=== PATIENT | male | born 1980 | race Caucasian/White ===

== ENCOUNTER 2019-06-16 13:46 | Emergency (ER) | payer OTHER ==
[~2019-06-16] VITALS: Ht 185.4 cm; Wt 115.9 kg
[2019-06-16 13:51] VITALS: BP 137/83; PULSE 79; TEMP 98.1
== END 2019-06-16 14:34 | disposition home or self-care (01) ==
LOC: COL.ER 13:46
DX: N52.9 Male erectile dysfunction, unspecified (principal); F41.9 Anxiety disorder, unspecified; F32.9 Major depressive disorder, single episode, unspecified; Z87.442 Personal history of urinary calculi; Z88.0 Allergy status to penicillin; Z88.8 Allergy status to other drugs, medicaments and biological substances

== ENCOUNTER 2020-02-01 14:48 | Emergency (ER) | payer OTHER ==
[~2020-02-01] VITALS: Ht 185.4 cm; Wt 113.6 kg
[2020-02-01 14:52] VITALS: TEMP 98.6
[2020-02-01 15:31] VITALS: BP 119/84; PULSE 84
== END 2020-02-01 15:35 | disposition home or self-care (01) ==
LOC: COL.ER 14:48
DX: T67.5XXA Heat exhaustion, unspecified, initial encounter (principal)

== ENCOUNTER 2020-12-30 16:44 | Emergency (ER) | payer OTHER ==
[~2020-12-30] VITALS: Ht 185.4 cm; Wt 118.2 kg
[2020-12-30 17:16] VITALS: BP 114/80; TEMP 98.7
[2020-12-30 20:32] VITALS: PULSE 72
== END 2020-12-30 20:33 | disposition home or self-care (01) ==
LOC: COL.ER 16:44
DX: S60.472A Other superficial bite of right middle finger, initial encounter (principal); T67.5XXA Heat exhaustion, unspecified, initial encounter; N52.9 Male erectile dysfunction, unspecified; W54.0XXA Bitten by dog, initial encounter

== ENCOUNTER 2021-07-31 11:51 | Emergency (ER) | payer OTHER ==
[~2021-07-31] VITALS: Ht 185.4 cm; Wt 120.5 kg
[2021-07-31 12:21] VITALS: BP 123/87; TEMP 98.4
[2021-07-31 13:35] VITALS: PULSE 72
== END 2021-07-31 13:39 | disposition home or self-care (01) ==
LOC: COL.ER 11:51
DX: U07.1 COVID-19 (principal)

== ENCOUNTER → 2021-07-31 | Emergency (ER) | payer OTHER | LOC: COL.ER 10:04 | DX: R69 Illness, unspecified (principal) ==

== ENCOUNTER 2021-08-18 11:17 | Emergency (ER) | payer OTHER ==
[~2021-08-18] VITALS: Ht 185.4 cm; Wt 120.5 kg
[2021-08-18 11:31] VITALS: TEMP 97.6
[2021-08-18 11:50] LABS: BASO % 0.7 % (0.0-2.0); EOS # 0.4 K/mm3 (0.0-0.7); EOS % 6.1 % (0.0-4.0); GRAN # 3.2 K/mm3 (1.4-6.5); GRAN % 56.2 % (42.2-75.2); HEMATOCRIT 42.4 % (42.0-52.0); HEMOGLOBIN 14.2 g/dl (13.5-18.0); LYMPH # 1.7 K/mm3 (1.2-3.4); LYMPH % 30.3 % (20.0-51.0); MEAN CELL VOLUME 92 fl (80.0-100.0); MEAN CORPUSCULAR HEMOGLOBIN 31 pg (27-31); MEAN CORPUSCULAR HGB CONC 34 g/dl (33.0-37.0); MEAN PLATELET VOLUME 9.5 fl (7.4-10.4); MONO # 0.4 K/mm3 (0.1-0.6); MONO % 6.5 % (1.7-9.3); PLATELET COUNT 256 K/mm3 (130-400); RED BLOOD COUNT 4.61 M/mm3 (4.20-5.60); REDCELL DISTRIBUTION WIDTH-CV 12.9 % (11.5-14.5)
[2021-08-18 11:57] LABS: INR 1.1 (0.8-3.0); PROTHROMBIN TIME 11.8 SECONDS (9.7-12.8)
[2021-08-18 12:00] LABS: PARTIAL THROMBOPLASTIN TIME 29.1 SECONDS (26.0-37.0)
[2021-08-18 12:02] LABS: D-DIMER < 200.00 ng/mLDDu (200-230)
[2021-08-18 12:07] LABS: ALANINE AMINOTRANSFERASE 34 U/L (0-55); ALBUMIN 4.3 gm/dL (3.5-5.0); ALKALINE PHOSPHATASE 46 U/L (40-150); ANION GAP 11 mmol/L (7-16); AST,SGOT 25 U/L (5-34); BILIRUBIN,TOTAL 0.6 mg/dL (0.2-1.2); BLOOD UREA NITROGEN 15 mg/dL (9-21); CALCIUM 9.1 mg/dL (8.4-10.2); CARBON DIOXIDE 21 mmol/L (22-29); CHLORIDE 108 mmol/L (98-107); CREATININE, serum 0.91 mg/dL (0.72-1.25); GLUCOSE 106 mg/dL (70-99); POTASSIUM 4.1 mmol/L (3.5-4.5); SODIUM 140 mmol/L (136-145); TOTAL PROTEIN 7.4 gm/dL (6.2-8.1)
[2021-08-18 12:13] LABS: TROPONIN-I < 0.010 ng/mL (0.00-0.033)
[2021-08-18 13:01] VITALS: BP 112/85; PULSE 65
== END 2021-08-18 13:14 | disposition home or self-care (01) ==
LOC: COL.ER 11:17
PROVIDERS: Emergency Medicine
DX: U07.1 COVID-19 (principal); R79.1 Abnormal coagulation profile; Z88.0 Allergy status to penicillin; Z88.1 Allergy status to other antibiotic agents; Z73.0 Burn-out

== ENCOUNTER 2021-12-28 19:40 | Emergency (ER) | payer OTHER ==
[~2021-12-28] VITALS: Ht 185.4 cm; Wt 120.9 kg
[2021-12-28 19:58] VITALS: TEMP 98.9
[2021-12-28 21:01] LABS: BASO % 0.2 % (0.0-2.0); EOS # 0.1 K/mm3 (0.0-0.7); EOS % 1.6 % (0.0-4.0); GRAN # 3.8 K/mm3 (1.4-6.5); GRAN % 85.4 % (42.2-75.2); HEMATOCRIT 46.2 % (42.0-52.0); LYMPH # 0.2 K/mm3 (1.2-3.4); LYMPH % 4.5 % (20.0-51.0); MEAN CELL VOLUME 90 fl (80.0-100.0); MEAN CORPUSCULAR HEMOGLOBIN 31 pg (27-31); MEAN CORPUSCULAR HGB CONC 35 g/dl (33.0-37.0); MEAN PLATELET VOLUME 9.5 fl (7.4-10.4); MONO # 0.4 K/mm3 (0.1-0.6); MONO % 8.1 % (1.7-9.3); PLATELET COUNT 200 K/mm3 (130-400); RED BLOOD COUNT 5.11 M/mm3 (4.20-5.60)
[2021-12-28 21:22] LABS: ALANINE AMINOTRANSFERASE 32 U/L (0-55); ALBUMIN 4.1 gm/dL (3.5-5.0); ALKALINE PHOSPHATASE 46 U/L (40-150); ANION GAP 15 mmol/L (7-16); AST,SGOT 18 U/L (5-34); BILIRUBIN,TOTAL 1.2 mg/dL (0.2-1.2); BLOOD UREA NITROGEN 19 mg/dL (9-21); CALCIUM 9.1 mg/dL (8.4-10.2); CARBON DIOXIDE 19 mmol/L (22-29); CHLORIDE 107 mmol/L (98-107); CREATININE, serum 1.08 mg/dL (0.72-1.25); GLUCOSE 128 mg/dL (70-99); LIPASE 19 U/L (8-78); POTASSIUM 3.9 mmol/L (3.5-4.5); SODIUM 141 mmol/L (136-145); TOTAL PROTEIN 7.5 gm/dL (6.2-8.1)
[2021-12-28 21:28] LABS: TROPONIN-I < 0.010 ng/mL (0.00-0.033)
[2021-12-28] MEDS ORDERED: ZOFRAN ODT4 MG PO (22:08)
[2021-12-28 22:42] VITALS: BP 118/79; PULSE 87
== END 2021-12-28 22:45 | disposition home or self-care (01) ==
LOC: COL.ER 19:40
PROVIDERS: Emergency Medicine
DX: R05.9 Cough, unspecified (principal)
CPT/HCPCS: J1885; J2405; J7120

== ENCOUNTER 2023-08-16 12:00 | Emergency (ER) | payer OTHER ==
[~2023-08-16] VITALS: Ht 185.4 cm; Wt 114.5 kg
[~2023-08-16 12:00] MED LIST: ZITHROMAX Z PA250 MG PO; ZOFRAN ODT4 MG PO
[2023-08-16 12:50] VITALS: TEMP 98.5
[2023-08-16] MEDS ORDERED: Morphine 4 MG/ML VIAL IV ONE (13:45)
[2023-08-16] MEDS ORDERED: NS 1,000 ML IV ONE (13:45)
[2023-08-16] MEDS ORDERED: Ondansetron 4 MG/2 ML VIAL IV ONE (13:45)
[2023-08-16 14:04] LABS: BASO % 0.3 % (0.0-2.0); EOS # 0.1 K/mm3 (0.0-0.7); EOS % 0.8 % (0.0-4.0); GRAN % 83.4 % (42.2-75.2); HEMATOCRIT 46.9 % (42.0-52.0); HEMOGLOBIN 16.1 g/dl (13.5-18.0); LYMPH # 0.6 K/mm3 (1.2-3.4); LYMPH % 9.8 % (20.0-51.0); MEAN CELL VOLUME 90 fl (80.0-100.0); MEAN CORPUSCULAR HEMOGLOBIN 31 pg (27-31); MEAN CORPUSCULAR HGB CONC 34 g/dl (33.0-37.0); MEAN PLATELET VOLUME 9.2 fl (7.4-10.4); MONO # 0.3 K/mm3 (0.1-0.6); MONO % 5.4 % (1.7-9.3); PLATELET COUNT 256 K/mm3 (130-400); RED BLOOD COUNT 5.19 M/mm3 (4.20-5.60); REDCELL DISTRIBUTION WIDTH-CV 12.7 % (11.5-14.5)
[2023-08-16 14:20] LABS: ALBUMIN 4.3 gm/dL (3.5-5.0); BILIRUBIN,TOTAL 1.1 mg/dL (0.2-1.2); CALCIUM 9.7 mg/dL (8.4-10.2); CREATININE, serum 1.08 mg/dL (0.72-1.25); POTASSIUM 3.7 mmol/L (3.5-4.5); TOTAL PROTEIN 7.7 gm/dL (6.2-8.1)
[2023-08-16 14:44] VITALS: BP 119/92; PULSE 73
[2023-08-16] MEDS ORDERED: NORCO 325 MG-51 TAB PO (14:51)
[2023-08-16] MEDS ORDERED: ZOFRAN ODT4 MG PO (14:51)
== END 2023-08-16 14:55 | disposition home or self-care (01) ==
LOC: COL.ER 12:00
PROVIDERS: Personal Emergency Response Attendant
DX: B34.9 Viral infection, unspecified (principal); R11.2 Nausea with vomiting, unspecified; R19.7 Diarrhea, unspecified; R10.9 Unspecified abdominal pain; R53.1 Weakness; R42 Dizziness and giddiness
CPT/HCPCS: J2270; J2405; J7030